=== PATIENT | male | born 1970 | race Two or more races ===

== ENCOUNTER 2025-07-16 01:20 | Emergency (ER) | payer OTHER ==
[~2025-07-16] VITALS: Ht 180.3 cm; Wt 83.5 kg
[2025-07-16 02:24] LABS: PLATELET COUNT (AUTO) 240 K/uL (150-450); RED BLOOD CELL COUNT(AUTO) 4.52 MIL/uL (4.5-6.0); RED CELL DISTRIBUTION WIDTH 13.9 % (11.5-15.0); WHITE BLOOD COUNT (AUTO) 5.8 K/uL (4.3-11.0)
[2025-07-16] MEDS: hydrALAZINE HCL IV 20 MG VIAL IV ONE (02:25)
[2025-07-16 02:31] LABS: CALCIUM, SERUM 8.8 mg/dL (8.5-10.1); CREATININE 1.1 mg/dL (0.6-1.3); SODIUM SERUM 140.0 mmol/L (136-145); UREA NITROGEN, BLOOD 10.0 mg/dL (7-18)
[2025-07-16 02:44] LABS: ASPARTATE AMINOTRANSFERASE 38.0 U/L (15-37); NT-PRO BNP 112.0 pg/mL (0-125); TOTAL PROTEIN, SERUM 7.1 g/dL (6.4-8.2)
[2025-07-16 04:40] VITALS: BP 151/79; TEMP 98.6; O2SAT 96
== END 2025-07-16 04:40 ==
LOC: ER 01:23
DX: I10 Essential (primary) hypertension (principal); R51.9 Headache, unspecified; R07.9 Chest pain, unspecified; Z60.2 Problems related to living alone
CPT/HCPCS: 36415; 70450-TC; 71045-TC; 80053-TC; 83880; 84484-TC; 85025-TC